=== PATIENT | female | born 1950 | race Caucasian/White ===

== ENCOUNTER 2020-01-02 16:26 | Emergency (ER) | payer OTHER ==
[~2020-01-02] VITALS: Ht 175.3 cm; Wt 65.8 kg
[2020-01-02 17:19] VITALS: BP_SYST 157
--- NOTE | 2020-01-02 17:29 | NUR ---
Patient triaged and placed in waiting room. VSS and patient appears in no acute distress at this time. Accompanied by , awaiting available bed, and MD notified of need for MSE.
--- NOTE | 2020-01-02 23:28 | NUR ---
Patient to ER bed 8 to gown for evaluation. Side rails up. Report given to Arnulfo STEWART.
--- NOTE | 2020-01-02 23:30 | NUR ---
Patient complains of "S-shaped" laceration to right hand on third digit. Pt states she was walking a dog and the leash was pulled hard causing carabeaner to cut her finger. Pt fell but denies hitting head or losing consciousness. No bleeding noted. NO other injuries/complaints per patient or noted.
--- NOTE | 2020-01-03 00:05 | NUR ---
ER Dr. Noel at bedside examining patient.
[2020-01-03] MEDS ORDERED: LIDOCAINE 1% 10 MG/ML, 20 ML MDV INJ ONE (00:45)
[2020-01-03] MEDS ORDERED: LIDOCAINE 1%, 20 ML MDV 20 ML ONE (00:48)
--- NOTE | 2020-01-03 01:00 | NUR ---
Patient has an S-shaped laceration to Right 3rd digit. Dr. Noel applied 6 sutures using sterile technique. Edges well approximated. Site cleansed with betadine and normal saline. Dressing of non-adherent applied to site. No bleeding noted. Pt tolerated well.
[2020-01-03 01:55] VITALS: BP_SYST 148
--- NOTE | 2020-01-03 01:55 | NUR ---
Patient given written and verbal discharge instructions and verbalizes understanding. ER MD discussed with patient the results and treatment provided. Patient in stable condition. ID arm band removed. No Rx given. Patient educated on pain management and to follow up with PMD. Pain Scale 0. Opportunity for questions provided and answered. Medication side effect fact sheet provided.
[2020-01-03] MEDS ORDERED: BACITRACIN 1 GM OINT TP ONE (01:57)
== END 2020-01-03 01:55 | disposition home or self-care (01) ==
LOC: SED 16:26
DX: S61.212A Laceration without foreign body of right middle finger without damage to nail, initial encounter (principal); W45.8XXA Other foreign body or object entering through skin, initial encounter; Y93.89 Activity, other specified; Y92.89 Other specified places as the place of occurrence of the external cause; Y99.8 Other external cause status
CPT/HCPCS: 12002; 99282; J2001